=== PATIENT | female | born 1950 | race Caucasian/White ===

== ENCOUNTER → 2016-10-07 | Day surgery (SDC) | payer MEDICARE ==
[~2016-10-07] MED LIST: AMIT100 PO; ASPI81 PO; ATEN-100 PO; BETA TOP; BUPIVACAINE/EPINEPHRINE 0.5% PF 10 ML VIAL ONE; CALC500T21 PO; CELL500T PO; CHOL50006 PO; CLINDAMYCIN PHOS 900 MG/6 ML VIAL ONE; DENO60P SC; DICY10 PO; HEPARIN SODIUM - IV 10,000 UNITS/10 ML VIAL ONE; HYDR-3115 PO; IBUP400T20 PO; LACTATED RINGER'S 1000 ML INJ 1,000 ML ONE; LEVO25TA36 PO; LISI-360 PO; LORA-392 PO; MIDAZOLAM HCL 2 MG/2 ML VIAL ONE; OMEP20CA5 PO; ONDANSETRON HCL 4 MG/2 ML VIAL IV PUSH ONE; PRED5 PO; PROPOFOL 200 MG/20 ML AMP IV ONE; ROPI1TAB72 PO; SODIUM CHLORIDE 0.9% 20 ML VIAL ONE; TAB-TAB PO; TIZA4CAP PO; VERA80TA PO
--- NOTE | 2016-10-07 12:55 | TN ---
cc: CLAUDIA PAULINO DATE OF SURGERY 10/07/2016 PRINCIPAL DIAGNOSIS HER2 positive right breast cancer PROCEDURE PERFORMED Left subclavian Yfebrf-I-Opni placement to facilitate neoadjuvant chemotherapy. INDICATION The patient is a 66-year-old female with a newly diagnosed right breast cancer which is HER2 positive. She has a candidate for neoadjuvant chemotherapy and now presents for port placement to facilitate treatment. FINDINGS AT THE TIME OF SURGERY Normal left subclavian anatomy was identified. PROCEDURE PERFORMED After informed consent was obtained and site verification was performed, the patient was brought to the major operating room where she underwent general anesthesia via an LMA device. The left chest was prepped and draped in sterile fashion. She was placed in the Trendelenburg position. The infraclavicular area was anesthetized with 0.5% Marcaine with epinephrine. The left subclavian vein was identified via percutaneous cannulation and a J-wire was advanced into the central circulation where its position was confirmed with fluoroscopy. Sharp and electrocautery dissection was then performed circumferentially around the wire until the wire entry point through the muscle was identified. Further electrocautery dissection was then performed to create a subcutaneous pocket around for the reservoir. A peel-away sheath and introducer were then advanced and the wire and introducer were removed. The catheter was cut off at 30 cm an advanced easily through the peel-away sheath which was then removed. Fluoroscopy demonstrated good catheter tip position at 19 cm and the catheter was cut off at that point and secured to the reservoir. The reservoir was noted to flush and aspirate easily and it was placed in the subcutaneous pocket and secured to the chest wall with a single 2-0 Prolene suture. Good hemostasis was noted and the wound was closed using interrupted 3-0 Vicryl subcutaneous sutures and a 4-0 Monocryl subcuticular suture. Steri-Strips and sterile dressing were applied. The patient tolerated the procedure well and was brought to the recovery room in good condition. MD DAREN Cardoso/PATRICIA /12:31 PM /12:43 PM [facility]
== END | disposition home or self-care (01) ==
LOC: ESDC 09:29
PROVIDERS: ATTEND Surgery
DX: C50.911 Malignant neoplasm of unspecified site of right female breast (principal)
CPT/HCPCS: 00532; 36561; 76000; C1788; J1644; J2250; J2405; J3010; J7120

== ENCOUNTER → 2017-01-15 | Day surgery (SDC) | payer MEDICARE ==
[~2017-01-15] MED LIST changes: -BUPIVACAINE/EPINEPHRINE 0.5% PF 10 ML VIAL ONE; +BUPIVACAINE/EPINEPHRINE 0.5% PF 30 ML VIAL ONE; -HEPARIN SODIUM - IV 10,000 UNITS/10 ML VIAL ONE; +HYDROCORTISONE SOD SUCCINATE 100 MG VIAL ONE; +ISOSULFAN BLUE 50 MG/5 ML VIAL SQ ONE; +KETOROLAC TROMETHAMINE 30 MG/ML (IVP) VIAL ONE; +LACTATED RINGER'S 1,000 ML BAG IV ONE; +MEPERIDINE HCL 50 MG/ML VIAL ONE; +MORPHINE SULFATE 4 MG/ML INJ ONE; +ONDANSETRON 40 MG/20 ML VIAL IV ONE; -ONDANSETRON HCL 4 MG/2 ML VIAL IV PUSH ONE; +SODIUM CHLORIDE 0.9% 100 ML MINIBAG IV ONE; -SODIUM CHLORIDE 0.9% 20 ML VIAL ONE; +SODIUM CHLORIDE 0.9% INJ 10 ML ONE; +oxyCODONE/ACETAMINOPHEN 5 MG/325 MG TAB ONE
--- NOTE | 2017-01-15 17:25 | TN ---
cc: MADONNA PAULINO DATE OF SURGERY: 01/15/2017. PRINCIPAL DIAGNOSIS: Right breast cancer. PROCEDURE PERFORMED: Bilateral mastectomy, right axillary sentinel lymph node biopsy, ATTENDING PHYSICIAN: Madonna Paulino MD. ANESTHESIA: General via LMA device. INDICATIONS: The patient is a 66-year-old diagnosed with a HER2/stalin positive right breast cancer clinical stage I earlier this year. She has completed neoadjuvant chemotherapy but will continue to take Herceptin. She has opted for bilateral mastectomy and presents for the procedure. FINDINGS AT SURGERY: No gross evidence of invasive carcinoma was identified in the right breast. Two sentinel lymph nodes were removed. #1 had a count of 433 that was 1+ blue and #2 had a count of 91 and was not blue. DESCRIPTION OF THE PROCEDURE IN DETAIL: After informed consent was obtained and site verification was performed, the patient was brought to the radiology suite where she underwent peritumoral radionuclide injection. Lymphoscintigraphy was performed but there was no sentinel node enhancement either medially or in the axilla. She was then brought to the major operating room where she underwent general anesthesia via LMA device. She was given a single dose of clindamycin due to PENICILLIN ALLERGY and sequential compression hose were placed. The right and left chest and neck and right arm were all prepped and draped in sterile fashion. Three mL of half-strength Lymphazurin were injected in the subareolar right breast and a 5-minute massage was performed. An elliptical incision was marked out on the right side and 180 mL of tumescent solution mixed with 30 mL of Marcaine with epinephrine were then infiltrated circumferentially around the breast and the plane between the anterior breast fascia and the subcutaneous fat. Sharp dissection was performed in this same plane in the specimen was oriented with the skin anterior, one short suture superiorly, and one long suture laterally. The breast was then dissected off the pectoralis muscle using electrocautery to include the pectoralis fascia with the breast specimen. The breast was amputated in the axilla and marked and sent for permanent pathologic evaluation. The clavipectoral fascia was then opened using electrocautery and the level I axilla was entered. There were some blue lymphatic channels extending from the right breast into the left low level I axilla and the blue lymph node was circumferentially dissected free from surrounding structures using the harmonic scalpel with the count as noted. An adjacent lymph node was also dissected circumferentially from surrounding structures and this lymph node had a count of 91 and was sent as sentinel node #2. The background count was 23 and no other palpable adenopathy was identified. Hemostasis was easily obtained with the harmonic scalpel and a stab wound was created along the right anterior axillary line. A 10-German Nick-Donnelly drain was placed through the stab wound and secured to the skin with a 3-0 nylon suture. Good hemostasis was noted and the wound was closed using a 3-0 Vicryl subcutaneous suture and a 4-0 Monocryl subcuticular suture. Steri-Strips and sterile dressings were applied. Attention was then turned to the left breast where a prophylactic mastectomy was performed. An elliptical incision was marked out and 180 mL of tumescent solution mixed with 30 mL of Marcaine with epinephrine was used to infiltrate in the plane between the subcutaneous fat and anterior breast fascia circumferentially around the breast. Sharp dissection was performed in this same plane and the breast was then dissected off the pectoralis muscle using electrocautery. The specimen was oriented using the skin anterior, one short suture medially, and one long suture superiorly. Hemostasis was easily obtained with electrocautery and the wound was closed using an interrupted 3-0 Vicryl subcutaneous suture and a 4-0 Monocryl subcuticular suture. Steri-Strips and a sterile dressing applied. The patient tolerated the procedure well with an estimated blood loss of 200 mL and she was extubated in the operating room and brought to the recovery room in good condition. All sponge and needle counts were correct at the conclusion of the case. MD DAREN Cardoso/JESSICA /4:07 PM /5:21 PM
== END | disposition home or self-care (01) ==
LOC: ESDC 07:47
PROVIDERS: ATTEND Surgery
DX: C50.911 Malignant neoplasm of unspecified site of right female breast (principal)
CPT/HCPCS: 00400; 01610; 19303; 38525; 38792; 88307; 88309; J1720; J1885; J2175; J2250; J2270; J2405; J3010; J7120; Q9968

== ENCOUNTER → 2017-05-19 | Outpatient (CLI) | payer MEDICARE ==
[~2017-05-19] MED LIST changes: -BUPIVACAINE/EPINEPHRINE 0.5% PF 30 ML VIAL ONE; -CLINDAMYCIN PHOS 900 MG/6 ML VIAL ONE; -HYDROCORTISONE SOD SUCCINATE 100 MG VIAL ONE; -ISOSULFAN BLUE 50 MG/5 ML VIAL SQ ONE; -KETOROLAC TROMETHAMINE 30 MG/ML (IVP) VIAL ONE; -LACTATED RINGER'S 1,000 ML BAG IV ONE; -LACTATED RINGER'S 1000 ML INJ 1,000 ML ONE; -MEPERIDINE HCL 50 MG/ML VIAL ONE; -MIDAZOLAM HCL 2 MG/2 ML VIAL ONE; -MORPHINE SULFATE 4 MG/ML INJ ONE; -ONDANSETRON 40 MG/20 ML VIAL IV ONE; -PROPOFOL 200 MG/20 ML AMP IV ONE; -SODIUM CHLORIDE 0.9% 100 ML MINIBAG IV ONE; -SODIUM CHLORIDE 0.9% INJ 10 ML ONE; -oxyCODONE/ACETAMINOPHEN 5 MG/325 MG TAB ONE
--- NOTE | 2017-05-19 21:35 | MG ---
cc: AJITH ELLIOTT MD Lab No: Date: 05/19/2017 Age: Sex: F Race: DATE OF [address] Senior. MEDICAL HISTORY 1. Hypothyroid. 2. Cataract. 3. Lower back pain, 4. Atrial fibrillation. 5. Hypertension. 6. COPD. 7. Osteoporosis. 8. Tobacco abuse. 9. Lupus. 10. Breast cancer. 11. Bilateral mastectomy. 12. Complained of headache, confusion, dizzy spells, memory loss. MEDICATIONS 1. Amitriptyline. 2. Atenolol. 3. Folic acid. 4. Hydrocodone. 5. Acetaminophen. 6. Levothyroxine. 7. Lorazepam. 8. Allie. 9. Prednisone. 10. Prolia. 11. Ropinerole. 12. Tamoxifen. 13. Tizanidine. DESCRIPTION The background activity is 9-10 Hz alpha, superimposed by excess beta activity located posteriorly bilateral and symmetrical. Hyperventilation was not done. Photic stimulation did not elicit a driving response. There were no electrographic seizures or epileptiform discharges noted during the recording. INTERPRETATION This is a normal awake EEG. Absence of electrographic seizures or epileptiform discharges does not rule out diagnosis of epilepsy. Clinical correlation is recommended. Ajith Elliott MD RGO/KK /9:07 PM /9:[address] [facility]ITALSte[facility]
== END ==
LOC: HEEG 08:11
PROVIDERS: ATTEND Family Medicine
DX: R40.4 Transient alteration of awareness (principal); D69.2 Other nonthrombocytopenic purpura
CPT/HCPCS: 95819

== ENCOUNTER → 2017-12-01 | Day surgery (SDC) | payer MEDICARE ==
[~2017-12-01] MED LIST changes: +BUPIVACAINE HCL PF 0.5% 10 ML VIAL ONE; +CLINDAMYCIN PHOS 900 MG/6 ML VIAL ONE; +KETOROLAC TROMETHAMINE 30 MG/ML (IVP) VIAL ONE; +LACTATED RINGER'S 1,000 ML BAG IV ONE; +LACTATED RINGER'S 1000 ML INJ 1,000 ML ONE; +MEPERIDINE HCL 25 MG/ML VIAL ONE; +MIDAZOLAM HCL 2 MG/2 ML VIAL ONE; +MORPHINE SULFATE 4 MG/ML INJ ONE; +ONDANSETRON HCL 4 MG/2 ML VIAL IV PUSH ONE; +PROPOFOL 200 MG/20 ML AMP IV ONE; +SODIUM CHLORIDE 0.9% 100 ML BAG IV ONE
--- NOTE | 2017-12-01 14:06 | MP ---
cc: Madonna Gomez MD DATE OF OPERATION: 12/01/2017 PRINCIPAL DIAGNOSIS: Symptomatic right chest wall seroma and hematoma. POSTOPERATIVE DIAGNOSIS: Symptomatic right chest wall seroma and hematoma. PROCEDURES PERFORMED: 1. Revision of right mastectomy scar and debridement and evacuation of chronic right chest wall seroma and hematoma. 2. Removal of left subclavian Infusaport. SURGEON: Madonna Gomez MD ANESTHESIA: General via LMA device. INDICATION: The patient is a 67-year-old female who is status post a right mastectomy for stage I, HER2 positive invasive ductal carcinoma in 2017. She developed swelling of the mid portion of her scar, which has affected her ability to wear a prosthesis and is also tender and symptomatic. She has also completed chemotherapy and now presents for revision of the scar, as well as removal of her Infusaport. FINDINGS AT THE TIME OF SURGERY: Normal left subclavian anatomy was identified. There was an approximately 200 mL fluid collection in the midportion of the right chest wall, which contained a combination of serous fluid and old clot. DESCRIPTION OF PROCEDURE: After informed consent was obtained, and site verification was performed, the patient was brought to the major operating room where she underwent general anesthesia via an LMA device. She was given a single dose of IV clindamycin due to PENICILLIN ALLERGY and sequential compression hose were placed. The right and left chest wall were then prepped and draped in sterile fashion, and 3 mL of 0.5% Marcaine was then infiltrated around the left subclavian port site. The site was sharply incised and sharp dissection was used until the port reservoir had been completely mobilized and delivered through the incision. The catheter withdrew without difficulty, and the total catheter distance was 18 cm. Hemostasis was obtained holding direct pressure at the subclavian site, and the wound was closed using interrupted 3-0 Vicryl subcutaneous sutures and a 4-0 Monocryl subcuticular suture. Steri-Strips were applied to the site. Attention was then turned to the right chest where there was a swollen, tender central complex mass. The mastectomy scar and surrounding tissue were anesthetized with 0.5% Marcaine plain. An elliptical incision was created in the midportion of the scar to remove some redundant skin and subcutaneous tissue, and further dissection revealed a complex fluid collection close to the pectoralis muscle, which was also debrided and excised. The excised tissue was sent for pathologic evaluation and hemostasis was easily obtained with electrocautery. A 10-Occitan round drain was placed at the chest wall through a separate stab wound, and it was secured to the skin with a 3-0 nylon suture. The wound was then closed using interrupted 3-0 Vicryl subcutaneous sutures and a 4-0 Monocryl subcuticular suture. Steri-Strips and a sterile dressing were applied. The patient tolerated the procedure well with an estimated blood loss of 200 mL, and she was extubated in the operating room and brought to the recovery room in good condition. All sponge and needle counts were correct at the conclusion of the case. MD DAREN Cardoso/DREA , 01:48 PM , 02:05 PM
== END | disposition home or self-care (01) ==
LOC: ESDC 09:47
PROVIDERS: ATTEND Surgery
DX: Z85.3 Personal history of malignant neoplasm of breast (principal); L76.34 Postprocedural seroma of skin and subcutaneous tissue following other procedure; Z90.11 Acquired absence of right breast and nipple; Z92.21 Personal history of antineoplastic chemotherapy
CPT/HCPCS: 00400; 10140; 13101; 36590; 88305; J1885; J2175; J2250; J2270; J2405; J3010; J7120; 88304